=== PATIENT | female | born 1985 | race Two or more races ===

== ENCOUNTER 2016-11-22 04:25 | Emergency (ER) | payer MEDICAID ==
[~2016-11-22] VITALS: Ht 167.6 cm; Wt 99.8 kg
[2016-11-22 07:16] VITALS: BP 107/69
[2016-11-22] MEDS ORDERED: KETOROLAC TROMETH 60MG/2ML VIAL IM ONE (07:30)
== END 2016-11-22 08:17 | disposition home or self-care (01) ==
LOC: EDUNIT# 04:25 → ER 04:25
DX: S80.02XA Contusion of left knee, initial encounter (principal); S00.83XA Contusion of other part of head, initial encounter; W01.0XXA Fall on same level from slipping, tripping and stumbling without subsequent striking against object, initial encounter; Y93.89 Activity, other specified; Y99.8 Other external cause status; Y92.89 Other specified places as the place of occurrence of the external cause
CPT/HCPCS: 73562; 96372; 99284; J1885

== ENCOUNTER 2018-08-02 10:07 | Emergency (ER) | payer MEDICAID ==
[~2018-08-02] VITALS: Ht 167.6 cm; Wt 99.8 kg
[2018-08-02 11:36] VITALS: BP 129/80
[2018-08-02] MEDS ORDERED: KETOROLAC TROMETH 60MG/2ML VIAL IM ONE (12:00)
[2018-08-02] MEDS ORDERED: METHOCARBAMOL 500 MG TAB PO ONE (12:00)
== END 2018-08-02 12:29 | disposition home or self-care (01) ==
LOC: EDBD 10:07 → EDUNIT# 10:07 → ER 10:09
DX: S13.4XXA Sprain of ligaments of cervical spine, initial encounter (principal); M25.512 Pain in left shoulder; M25.511 Pain in right shoulder; Z90.49 Acquired absence of other specified parts of digestive tract; V43.52XA Car driver injured in collision with other type car in traffic accident, initial encounter; Y93.I9 Activity, other involving external motion; Y92.488 Other paved roadways as the place of occurrence of the external cause; Y99.8 Other external cause status
CPT/HCPCS: 72125; 81002; 81025; 96372; 99284; J1885

== ENCOUNTER 2018-08-31 09:36 | Emergency (ER) | payer MEDICAID ==
[~2018-08-31] VITALS: Ht 167.6 cm; Wt 102.1 kg
[2018-08-31 09:53] VITALS: BP 116/69
[2018-08-31] MEDS ORDERED: LOPERAMIDE HCL 2 MG CAP PO ONE (10:00)
[2018-08-31] MEDS ORDERED: ONDANSETRON HCL 4 MG/2 ML VIAL IV ONE (10:00)
[2018-08-31] MEDS ORDERED: FAMOTIDINE (10MG/ML) 2ML VL IV ONE (10:00)
[2018-08-31] MEDS ORDERED: SODIUM CHLORIDE 0.9% 1,000 ML IV ONE (10:00)
[2018-08-31 10:41] LABS: Basophils # (auto) 0 uL; Basophils % (auto) 0.4 % (0.0-2.0); Eosinophils # (auto) 0.1 uL; Eosinophils % (auto) 0.7 % (0.0-7.0); Hematocrit 42.5 % (36.0-46.0); Hemoglobin 14.1 g/dL (12.2-16.2); Lymphocytes # (auto) 1.3 uL; Lymphocytes % (auto) 14.5 % (10.0-50.0); Mean Corpuscular Hemoglobin 29.4 pg (28.0-32.0); Mean Corpuscular Hgb Conc. 33.3 g/dL (32.0-36.0); Mean Corpuscular Volume 88.6 fL (80.0-100.0); Monocytes # (auto) 0.4 uL; Monocytes % (auto) 5.1 % (0.0-12.0); Neutrophils # (auto) 6.9 uL; Neutrophils % (auto) 79.3 % (37.0-80.0); Nucleated Red Blood Cells % 0.1 %; Platelet Count (auto) 221 10^3/uL (140-450); Red Cell Distribution Width 13.7 % (11.8-14.3); White Blood Cell 8.7 10^3/uL (4.4-10.8)
[2018-08-31 10:52] LABS: BUN/Creatinine Ratio 7.7; Calcium 9.2 mg/dL (8.5-10.1); Potassium 3.4 mmol/L (3.5-5.1)
== END 2018-08-31 11:49 | disposition home or self-care (01) ==
LOC: ER 09:36
DX: R19.7 Diarrhea, unspecified (principal); Z90.49 Acquired absence of other specified parts of digestive tract
CPT/HCPCS: 36415; 80048; 81002; 81025; 85025; 96361; 96374; 96375; 99283; J2405; J3490; J7030